=== PATIENT | male | born 1995 | race Caucasian/White ===

== ENCOUNTER 2018-06-30 03:54 | Emergency (ER) | payer OTHER ==
[~2018-06-30] VITALS: Ht 185.4 cm; Wt 139.0 kg
--- NOTE | 2018-06-30 03:59 | ED.ADGEN ---
Past History Smoking: Cigarettes Alcohol Use: Occasionally Drug Use: Cocaine (VALENTINO DOSS MD) Adult General Chief Complaint Chief Complaint ".. I woke up with this chest pain... 12/27... it s been going on about hour...here on the Lt. ..." (VALENTINO DOSS MD) HPI HPI Patient is a 23 year old male who presents with Lt. sided chest pain. Has has low level pain since yesterday. Tonight pain is more severe and it woke him up. He is somewhat pleuritic increased with deep breaths and cough. Pain is localized on left side and radiates to back Pt. denies prior cardiac history. Patient does smoke. Patient does occasionally use cocaine. Patient denies any recent drug use. 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 Patient denies any previous history of DVTs, PEs or prior episodes of chest pain. Patient's cough has been nonproductive. No history of trauma. (VALENTINO DOSS MD) Review of Systems Review of Systems Constitutional: Denies fever or chills [] Eyes: Denies change in visual acuity, redness, or eye pain [] HENT: Denies nasal congestion or sore throat [] Respiratory: History of a nonproductive cough . Subjective shortness of breath [ ] Cardiovascular: No additional information not addressed in HPI [] GI: Denies abdominal pain, nausea, vomiting, bloody stools or diarrhea [] : Denies dysuria or hematuria [] Musculoskeletal: Denies back pain or joint pain [] Integument: Denies rash or skin lesions [] Neurologic: Denies headache, focal weakness or sensory changes [] Endocrine: Denies polyuria or polydipsia [] All other systems were reviewed and found to be within normal limits, except as documented in this note. (VALENTINO DOSS MD) Family History Family History Father started having clotting problems stage XL DVTs stroke pulmonary embolisms (VALENTINO DOSS MD) Current Medications Current Medications Current Medications Medications (Trade) Dose Ordered Sig/Grisel Start Time Stop Time Status Last Admin Dose Admin Aspirin (Children'S Aspirin) 324 mg 1X ONCE 06/30/18 04:15 06/30/18 04:16 DC 06/30/18 04:22 324 MG Famotidine (Pepcid Vial) 20 mg 1X ONCE 06/30/18 04:15 06/30/18 04:16 DC 06/30/18 04:23 20 MG Ketorolac Tromethamine (Toradol 30mg Vial) 30 mg 1X ONCE 06/30/18 04:15 06/30/18 04:16 DC 06/30/18 04:23 30 MG Lactated Ringer's 1,000 ml @ 1,000 mls/hr Q1H 06/30/18 04:15 06/30/18 05:14 DC 06/30/18 04:23 1,000 MLS/HR Ondansetron HCl (Zofran) 8 mg 1X ONCE 06/30/18 05:15 06/30/18 05:19 DC 06/30/18 05:15 8 MG (GINGER ROBERTSON DO) Current Medications See nursing for home meds (VALENTINO DOSS MD) Allergies Allergies Allergies Coded Allergies Type Severity Reaction Last Updated Verified No Known Drug Allergies 06/30/18 No (GINGER ROBERTSON DO) Physical Exam Physical Exam Constitutional: Moderate distress, non-toxic appearance. [] HENT: Normocephalic, atraumatic, bilateral external ears normal, oropharynx moist, no oral exudates, nose normal. [] Eyes: PERRLA, EOMI, conjunctiva normal, no discharge. [] Neck: Normal range of motion, no tenderness, supple, no stridor. [] Cardiovascular: Regular Heart rate regular rhythm, no murmur [] Lungs & Thorax: Bilateral breath sounds equal at apex on auscultation [A few scattered wheezes.) Abdomen: Bowel sounds normal, soft, no tenderness, no masses, no pulsatile masses. [] Skin: Warm, dry, no erythema, no rash. [Tattoos Back: No tenderness, no CVA tenderness. [] Extremities: No tenderness, no cyanosis, no clubbing, ROM intact, no edema. [] No cording appreciated Neurologic: Alert and oriented X 3, normal motor function, normal sensory function, no focal deficits noted. [] Psychologic: Affect very anxious, judgement normal, mood normal. [] (VALENTINO DOSS MD) Current Patient Data Vital Signs Vital Signs Date Time Temp Pulse Resp B/P (MAP) Pulse Ox O2 Delivery O2 Flow Rate FiO2 06/30/18 06:45 81 18 97/41 (59) 95 Room Air 06/30/18 03:54 98.1 (GINGER ROBERTSON DO) Lab Results Laboratory Tests Test 06/30/18 04:05 06/30/18 04:12 06/30/18 05:03 06/30/18 05:35 Urine Collection Type Unknown Urine Color Yellow Urine Clarity Clear Urine pH 5.5 Urine Specific [place] 1.025 Urine Protein Neg (NEG-TRACE) Urine Glucose (UA) Neg mg/dL (NEG) Urine Ketones (Stick) Neg mg/dL (NEG) Urine Blood Neg (NEG) Urine Nitrite Neg (NEG) Urine Bilirubin Neg (NEG) Urine Urobilinogen Dipstick 0.2 mg/dL (0.2 mg/dL) Urine Leukocyte Esterase Neg (NEG) Urine RBC 0 /HPF (0-2) Urine WBC Occ /HPF (0-4) Urine Squamous Epithelial Cells Few /LPF Urine Bacteria 0 /HPF (0-FEW) Urine Opiates Screen Neg (NEG) Urine Methadone Screen Neg (NEG) Urine Barbiturates Neg (NEG) Urine Phencyclidine Screen Neg (NEG) Urine Amphetamine/Methamphetamine Neg (NEG) Urine Benzodiazepines Screen Neg (NEG) Urine Cocaine Screen Neg (NEG) Urine Cannabinoids Screen Neg (NEG) Urine Ethyl Alcohol Neg (NEG) White Blood Count 8.8 x10^3/uL (4.0-11.0) Red Blood Count 5.68 x10^6/uL (4.30-5.70) Hemoglobin 16.8 g/dL (13.0-17.5) Hematocrit 50.1 % (39.0-53.0) Mean Corpuscular Volume 88 fL (79-100) Mean Corpuscular Hemoglobin 30 pg (25-35) Mean Corpuscular Hemoglobin Concent 34 g/dL (31-37) Red Cell Distribution Width 13.1 % (11.5-14.5) Platelet Count 189 x10^3/uL (140-400) Neutrophils (%) (Auto) 65 % (31-73) Lymphocytes (%) (Auto) 26 % (24-48) Monocytes (%) (Auto) 8 % (0-9) Eosinophils (%) (Auto) 1 % (0-3) Basophils (%) (Auto) 1 % (0-3) Neutrophils # (Auto) 5.7 x10^3uL (1.8-7.7) Lymphocytes # (Auto) 2.2 x10^3/uL (1.0-4.8) Monocytes # (Auto) 0.7 x10^3/uL (0.0-1.1) Eosinophils # (Auto) 0.1 x10^3/uL (0.0-0.7) Basophils # (Auto) 0.1 x10^3/uL (0.0-0.2) Prothrombin Time 9.9 SEC (9.4-11.4) Prothrombin Time INR 1.0 (0.9-1.1) PTT 23 SEC (23-33) D-Dimer ([place]) 0.49 mg/L (0.00-0.50) Sodium Level 142 mmol/L (136-145) Potassium Level 3.9 mmol/L (3.5-5.1) Chloride Level 104 mmol/L (98-107) Carbon Dioxide Level 30 mmol/L (21-32) Anion Gap 8 (6-14) Blood Urea Nitrogen 15 mg/dL (8-26) Creatinine 1.2 mg/dL (0.7-1.3) Estimated GFR (Cockcroft-Gault) 75.7 Glucose Level 105 mg/dL (70-99) H Calcium Level 9.1 mg/dL (8.5-10.1) Magnesium Level 2.1 mg/dL (1.8-2.4) Total Bilirubin 0.7 mg/dL (0.2-1.0) Direct Bilirubin 0.2 mg/dL (0.0-0.2) Aspartate Amino Transferase (AST) 37 U/L (15-37) Alanine Aminotransferase (ALT) 95 U/L (16-63) H Alkaline Phosphatase 66 U/L (46-116) Creatine Kinase 197 U/L (39-308) Troponin I Quantitative < 0.017 ng/mL (0-0.055) < 0.017 ng/mL (0-0.055) YI-Tqb-R-Type Natriuretic Peptide 5 pg/mL (0-124) Total Protein 8.0 g/dL (6.4-8.2) Albumin 4.1 g/dL (3.4-5.0) Amylase Level 61 U/L (25-115) Lipase 138 U/L (73-393) Influenza Type A (Rapid) Negative (NEGATIVE) Influenza Type B (Rapid) Negative (NEGATIVE) (GINGER ROBERTSON DO) Lab Results Laboratory Tests Test 06/30/18 04:05 06/30/18 04:12 06/30/18 05:03 06/30/18 05:35 Urine Collection Type Unknown Urine Color Yellow Urine Clarity Clear Urine pH 5.5 Urine Specific [place] 1.025 Urine Protein Neg (NEG-TRACE) Urine Glucose (UA) Neg mg/dL (NEG) Urine Ketones (Stick) Neg mg/dL (NEG) Urine Blood Neg (NEG) Urine Nitrite Neg (NEG) Urine Bilirubin Neg (NEG) Urine Urobilinogen Dipstick 0.2 mg/dL (0.2 mg/dL) Urine Leukocyte Esterase Neg (NEG) Urine RBC 0 /HPF (0-2) Urine WBC Occ /HPF (0-4) Urine Squamous Epithelial Cells Few /LPF Urine Bacteria 0 /HPF (0-FEW) Urine Opiates Screen Neg (NEG) Urine Methadone Screen Neg (NEG) Urine Barbiturates Neg (NEG) Urine Phencyclidine Screen Neg (NEG) Urine Amphetamine/Methamphetamine Neg (NEG) Urine Benzodiazepines Screen Neg (NEG) Urine Cocaine Screen Neg (NEG) Urine Cannabinoids Screen Neg (NEG) Urine Ethyl Alcohol Neg (NEG) White Blood Count 8.8 x10^3/uL (4.0-11.0) Red Blood Count 5.68 x10^6/uL (4.30-5.70) Hemoglobin 16.8 g/dL (13.0-17.5) Hematocrit 50.1 % (39.0-53.0) Mean Corpuscular Volume 88 fL (79-100) Mean Corpuscular Hemoglobin 30 pg (25-35) Mean Corpuscular Hemoglobin Concent 34 g/dL (31-37) Red Cell Distribution Width 13.1 % (11.5-14.5) Platelet Count 189 x10^3/uL (140-400) Neutrophils (%) (Auto) 65 % (31-73) Lymphocytes (%) (Auto) 26 % (24-48) Monocytes (%) (Auto) 8 % (0-9) Eosinophils (%) (Auto) 1 % (0-3) Basophils (%) (Auto) 1 % (0-3) Neutrophils # (Auto) 5.7 x10^3uL (1.8-7.7) Lymphocytes # (Auto) 2.2 x10^3/uL (1.0-4.8) Monocytes # (Auto) 0.7 x10^3/uL (0.0-1.1) Eosinophils # (Auto) 0.1 x10^3/uL (0.0-0.7) Basophils # (Auto) 0.1 x10^3/uL (0.0-0.2) Prothrombin Time 9.9 SEC (9.4-11.4) Prothrombin Time INR 1.0 (0.9-1.1) PTT 23 SEC (23-33) D-Dimer ([place]) 0.49 mg/L (0.00-0.50) Sodium Level 142 mmol/L (136-145) Potassium Level 3.9 mmol/L (3.5-5.1) Chloride Level 104 mmol/L (98-107) Carbon Dioxide Level 30 mmol/L (21-32) Anion Gap 8 (6-14) Blood Urea Nitrogen 15 mg/dL (8-26) Creatinine 1.2 mg/dL (0.7-1.3) Estimated GFR (Cockcroft-Gault) 75.7 Glucose Level 105 mg/dL (70-99) H Calcium Level 9.1 mg/dL (8.5-10.1) Magnesium Level 2.1 mg/dL (1.8-2.4) Total Bilirubin 0.7 mg/dL (0.2-1.0) Direct Bilirubin 0.2 mg/dL (0.0-0.2) Aspartate Amino Transferase (AST) 37 U/L (15-37) Alanine Aminotransferase (ALT) 95 U/L (16-63) H Alkaline Phosphatase 66 U/L (46-116) Creatine Kinase 197 U/L (39-308) Troponin I Quantitative < 0.017 ng/mL (0-0.055) < 0.017 ng/mL (0-0.055) XV-Lhm-A-Type Natriuretic Peptide 5 pg/mL (0-124) Total Protein 8.0 g/dL (6.4-8.2) Albumin 4.1 g/dL (3.4-5.0) Triglycerides Level 136 mg/dL (0-150) Cholesterol Level 214 mg/dL (0-200) H LDL Cholesterol, Calculated 146 mg/dL (0-100) H VLDL Cholesterol, Calculated 27 mg/dL (0-40) Non-HDL Cholesterol Calculated 173 mg/dL (0-129) H HDL Cholesterol 41 mg/dL (40-60) Cholesterol/HDL Ratio 5.0 Amylase Level 61 U/L (25-115) Lipase 138 U/L (73-393) Thyroid Stimulating Hormone (TSH) 2.634 uIU/mL (0.358-3.740) Influenza Type A (Rapid) Negative (NEGATIVE) Influenza Type B (Rapid) Negative (NEGATIVE) (VALENTINO DOSS MD) EKG EKG I interpretation of EKG shows a sinus rhythm at 78 bpm. There are no findings acute STEMI with contralateral changes.[] Repeat EKG at 543 shows a sinus rhythm at 73. No acute changes. No acute morphology. (VALENTINO DOSS MD) Radiology/Procedures Radiology/Procedures I interpretation of chest x-ray shows no acute cardiopulmonary findings. Some basilar atelectasis. Free air under the diaphragm.[] (VALENTINO DOSS MD) Course & Med Decision Making Course & Med Decision Making Pertinent Labs and Imaging studies reviewed. (See chart for details) Pt. take daily ASA. Take Ibuprofen 600mg up4 x day for pain with food. Follow up with primary and get out pt. cardiology consult. Avoid any tobacco or illicit drugs. Return if any concerns. Heart Score-1 to2 [] (VALENTINO DOSS MD) Course & Med Decision Making The radiologist called emergency room about this patient and I took the call. They did identify a very small possible pneumothorax in the apex of the right lung. I reviewed this x-ray myself and agree that it is very small if in fact his pneumothorax. An pneumothorax of this size should resorb without intervention. I will not ask the patient to return for a chest tube. We will call and inform him of this finding. (GINGER ROBERTSON DO) Final Impression Final Impression 1. Chest Pain[]-Pleuritic (VALENTINO DOSS MD) Dragon Disclaimer Dragon Disclaimer This electronic medical record was generated, in whole or in part, using a voice recognition dictation system. (VALENTINO DOSS MD) Discharge Summary Visit Information Final Diagnosis Problems Medical Problems: (1) Chest pain Status: Acute (GINGER ROBERTSON DO) Brief Hospital Course Allergies Allergies Coded Allergies Type Severity Reaction Last Updated Verified No Known Drug Allergies 06/30/18 No (GINGER ROBERTSON DO) Vital Signs Vital Signs Date Time Temp Pulse Resp B/P (MAP) Pulse Ox O2 Delivery O2 Flow Rate FiO2 06/30/18 06:45 81 18 97/41 (59) 95 Room Air 06/30/18 03:54 98.1 (GINGER ROBERTSON DO) Lab Results Laboratory Tests Test 06/30/18 04:05 06/30/18 04:12 06/30/18 05:03 06/30/18 05:35 Urine Collection Type Unknown Urine Color Yellow Urine Clarity Clear Urine pH 5.5 Urine Specific [place] 1.025 Urine Protein Neg (NEG-TRACE) Urine Glucose (UA) Neg mg/dL (NEG) Urine Ketones (Stick) Neg mg/dL (NEG) Urine Blood Neg (NEG) Urine Nitrite Neg (NEG) Urine Bilirubin Neg (NEG) Urine Urobilinogen Dipstick 0.2 mg/dL (0.2 mg/dL) Urine Leukocyte Esterase Neg (NEG) Urine RBC 0 /HPF (0-2) Urine WBC Occ /HPF (0-4) Urine Squamous Epithelial Cells Few /LPF Urine Bacteria 0 /HPF (0-FEW) Urine Opiates Screen Neg (NEG) Urine Methadone Screen Neg (NEG) Urine Barbiturates Neg (NEG) Urine Phencyclidine Screen Neg (NEG) Urine Amphetamine/Methamphetamine Neg (NEG) Urine Benzodiazepines Screen Neg (NEG) Urine Cocaine Screen Neg (NEG) Urine Cannabinoids Screen Neg (NEG) Urine Ethyl Alcohol Neg (NEG) White Blood Count 8.8 x10^3/uL (4.0-11.0) Red Blood Count 5.68 x10^6/uL (4.30-5.70) Hemoglobin 16.8 g/dL (13.0-17.5) Hematocrit 50.1 % (39.0-53.0) Mean Corpuscular Volume 88 fL (79-100) Mean Corpuscular Hemoglobin 30 pg (25-35) Mean Corpuscular Hemoglobin Concent 34 g/dL (31-37) Red Cell Distribution Width 13.1 % (11.5-14.5) Platelet Count 189 x10^3/uL (140-400) Neutrophils (%) (Auto) 65 % (31-73) Lymphocytes (%) (Auto) 26 % (24-48) Monocytes (%) (Auto) 8 % (0-9) Eosinophils (%) (Auto) 1 % (0-3) Basophils (%) (Auto) 1 % (0-3) Neutrophils # (Auto) 5.7 x10^3uL (1.8-7.7) Lymphocytes # (Auto) 2.2 x10^3/uL (1.0-4.8) Monocytes # (Auto) 0.7 x10^3/uL (0.0-1.1) Eosinophils # (Auto) 0.1 x10^3/uL (0.0-0.7) Basophils # (Auto) 0.1 x10^3/uL (0.0-0.2) Prothrombin Time 9.9 SEC (9.4-11.4) Prothromb Time International Ratio 1.0 (0.9-1.1) Activated Partial Thromboplast Time 23 SEC (23-33) D-Dimer ([place]) 0.49 mg/L (0.00-0.50) Sodium Level 142 mmol/L (136-145) Potassium Level 3.9 mmol/L (3.5-5.1) Chloride Level 104 mmol/L (98-107) Carbon Dioxide Level 30 mmol/L (21-32) Anion Gap 8 (6-14) Blood Urea Nitrogen 15 mg/dL (8-26) Creatinine 1.2 mg/dL (0.7-1.3) Estimated GFR (Cockcroft-Gault) 75.7 Glucose Level 105 mg/dL (70-99) Calcium Level 9.1 mg/dL (8.5-10.1) Magnesium Level 2.1 mg/dL (1.8-2.4) Total Bilirubin 0.7 mg/dL (0.2-1.0) Direct Bilirubin 0.2 mg/dL (0.0-0.2) Aspartate Amino Transf (AST/SGOT) 37 U/L (15-37) Alanine Aminotransferase (ALT/SGPT) 95 U/L (16-63) Alkaline Phosphatase 66 U/L (46-116) Creatine Kinase 197 U/L (39-308) Troponin I Quantitative < 0.017 ng/mL (0-0.055) < 0.017 ng/mL (0-0.055) ZZ-Yoc-K-Type Natriuretic Peptide 5 pg/mL (0-124) Total Protein 8.0 g/dL (6.4-8.2) Albumin 4.1 g/dL (3.4-5.0) Amylase Level 61 U/L (25-115) Lipase 138 U/L (73-393) Influenza Type A (Rapid) Negative (NEGATIVE) Influenza Type B (Rapid) Negative (NEGATIVE) (GINGER ROBERTSON DO) Brief Hospital Course Mr. Ly is a 23 old male who presented with history of pleuritic chest pain. Patient take a daily aspirin. Patient take ibuprofen up 4 times a day for chest wall pain. Patient follow-up primary care. Patient obtain outpatient cardiac follow-up. Patient avoid illicit drugs and tobacco. (VALENTINO DOSS MD) Discharge Information Condition at Discharge: Improved, Stable Disposition/Orders: D/C to Home (VALENTINO DOSS MD) Dischare Medications Current Medications Aspirin (Children'S Aspirin) 324 mg 1X ONCE PO Last administered on 06/30/18at 04:22; Admin Dose 324 MG; Start 06/30/18 at 04:15; Stop 06/30/18 at 04:16; Status DC Lactated Ringer's 1,000 ml @ 1,000 mls/hr Q1H IV Last administered on at 04:23; Admin Dose 1,000 MLS/HR; Start 06/30/18 at 04:15; Stop 06/30/18 at 05:14; Status DC Famotidine (Pepcid Vial) 20 mg 1X ONCE IVP Last administered on 06/30/18at 04: 23; Admin Dose 20 MG; Start 06/30/18 at 04:15; Stop 06/30/18 at 04:16; Status DC Ketorolac Tromethamine (Toradol 30mg Vial) 30 mg 1X ONCE IV Last administered on 06/30/18at 04:23; Admin Dose 30 MG; Start 06/30/18 at 04:15; Stop 06/30/18 at 04:16; Status DC Ondansetron HCl (Zofran) 8 mg 1X ONCE IV Last administered on 06/30/18at 05:15 ; Admin Dose 8 MG; Start 06/30/18 at 05:15; Stop 06/30/18 at 05:19; Status DC (GINGER ROBERTSON DO) Discharge Summary Visit Information Final Diagnosis Problems Medical Problems: (1) Chest pain Status: Acute (GINGER ROBERTSON DO) Brief Hospital Course Allergies Allergies Coded Allergies Type Severity Reaction Last Updated Verified No Known Drug Allergies 06/30/18 No (GINGER ROBERTSON DO) Vital Signs Vital Signs Date Time Temp Pulse Resp B/P (MAP) Pulse Ox O2 Delivery O2 Flow Rate FiO2 06/30/18 06:45 81 18 97/41 (59) 95 Room Air 06/30/18 03:54 98.1 (GINGER ROBERTSON DO) Lab Results Laboratory Tests Test 06/30/18 04:05 06/30/18 04:12 06/30/18 05:03 06/30/18 05:35 Urine Collection Type Unknown Urine Color Yellow Urine Clarity Clear Urine pH 5.5 Urine Specific [place] 1.025 Urine Protein Neg (NEG-TRACE) Urine Glucose (UA) Neg mg/dL (NEG) Urine Ketones (Stick) Neg mg/dL (NEG) Urine Blood Neg (NEG) Urine Nitrite Neg (NEG) Urine Bilirubin Neg (NEG) Urine Urobilinogen Dipstick 0.2 mg/dL (0.2 mg/dL) Urine Leukocyte Esterase Neg (NEG) Urine RBC 0 /HPF (0-2) Urine WBC Occ /HPF (0-4) Urine Squamous Epithelial Cells Few /LPF Urine Bacteria 0 /HPF (0-FEW) Urine Opiates Screen Neg (NEG) Urine Methadone Screen Neg (NEG) Urine Barbiturates Neg (NEG) Urine Phencyclidine Screen Neg (NEG) Urine Amphetamine/Methamphetamine Neg (NEG) Urine Benzodiazepines Screen Neg (NEG) Urine Cocaine Screen Neg (NEG) Urine Cannabinoids Screen Neg (NEG) Urine Ethyl Alcohol Neg (NEG) White Blood Count 8.8 x10^3/uL (4.0-11.0) Red Blood Count 5.68 x10^6/uL (4.30-5.70) Hemoglobin 16.8 g/dL (13.0-17.5) Hematocrit 50.1 % (39.0-53.0) Mean Corpuscular Volume 88 fL (79-100) Mean Corpuscular Hemoglobin 30 pg (25-35) Mean Corpuscular Hemoglobin Concent 34 g/dL (31-37) Red Cell Distribution Width 13.1 % (11.5-14.5) Platelet Count 189 x10^3/uL (140-400) Neutrophils (%) (Auto) 65 % (31-73) Lymphocytes (%) (Auto) 26 % (24-48) Monocytes (%) (Auto) 8 % (0-9) Eosinophils (%) (Auto) 1 % (0-3) Basophils (%) (Auto) 1 % (0-3) Neutrophils # (Auto) 5.7 x10^3uL (1.8-7.7) Lymphocytes # (Auto) 2.2 x10^3/uL (1.0-4.8) Monocytes # (Auto) 0.7 x10^3/uL (0.0-1.1) Eosinophils # (Auto) 0.1 x10^3/uL (0.0-0.7) Basophils # (Auto) 0.1 x10^3/uL (0.0-0.2) Prothrombin Time 9.9 SEC (9.4-11.4) Prothromb Time International Ratio 1.0 (0.9-1.1) Activated Partial Thromboplast Time 23 SEC (23-33) D-Dimer ([place]) 0.49 mg/L (0.00-0.50) Sodium Level 142 mmol/L (136-145) Potassium Level 3.9 mmol/L (3.5-5.1) Chloride Level 104 mmol/L (98-107) Carbon Dioxide Level 30 mmol/L (21-32) Anion Gap 8 (6-14) Blood Urea Nitrogen 15 mg/dL (8-26) Creatinine 1.2 mg/dL (0.7-1.3) Estimated GFR (Cockcroft-Gault) 75.7 Glucose Level 105 mg/dL (70-99) Calcium Level 9.1 mg/dL (8.5-10.1) Magnesium Level 2.1 mg/dL (1.8-2.4) Total Bilirubin 0.7 mg/dL (0.2-1.0) Direct Bilirubin 0.2 mg/dL (0.0-0.2) Aspartate Amino Transf (AST/SGOT) 37 U/L (15-37) Alanine Aminotransferase (ALT/SGPT) 95 U/L (16-63) Alkaline Phosphatase 66 U/L (46-116) Creatine Kinase 197 U/L (39-308) Troponin I Quantitative < 0.017 ng/mL (0-0.055) < 0.017 ng/mL (0-0.055) GS-Vns-Y-Type Natriuretic Peptide 5 pg/mL (0-124) Total Protein 8.0 g/dL (6.4-8.2) Albumin 4.1 g/dL (3.4-5.0) Amylase Level 61 U/L (25-115) Lipase 138 U/L (73-393) Influenza Type A (Rapid) Negative (NEGATIVE) Influenza Type B (Rapid) Negative (NEGATIVE) (GINGER ROBERTSON DO) Brief Hospital Course Mr. Ly is a 23 old male who presented with pleurisy. Must follow-up with primary. Consider outpatient stress testing if cardiac continue to be a concern.. (VALENTINO DOSS MD) Discharge Information Condition at Discharge: Improved, Stable Disposition/Orders: D/C to Home (VALENTINO DOSS MD) Dischare Medications Current Medications Aspirin (Children'S Aspirin) 324 mg 1X ONCE PO Last administered on 06/30/18at 04:22; Admin Dose 324 MG; Start 06/30/18 at 04:15; Stop 06/30/18 at 04:16; Status DC Lactated Ringer's 1,000 ml @ 1,000 mls/hr Q1H IV Last administered on at 04:23; Admin Dose 1,000 MLS/HR; Start 06/30/18 at 04:15; Stop 06/30/18 at 05:14; Status DC Famotidine (Pepcid Vial) 20 mg 1X ONCE IVP Last administered on 06/30/18at 04: 23; Admin Dose 20 MG; Start 06/30/18 at 04:15; Stop 06/30/18 at 04:16; Status DC Ketorolac Tromethamine (Toradol 30mg Vial) 30 mg 1X ONCE IV Last administered on 06/30/18at 04:23; Admin Dose 30 MG; Start 06/30/18 at 04:15; Stop 06/30/18 at 04:16; Status DC Ondansetron HCl (Zofran) 8 mg 1X ONCE IV Last administered on 06/30/18at 05:15 ; Admin Dose 8 MG; Start 06/30/18 at 05:15; Stop 06/30/18 at 05:19; Status DC (GINGER ROBERTSON DO) Dragon Disclaimer This chart was dictated in whole or in part using Voice Recognition software in a busy, high-work load, and often noisy Emergency Department environment. It may contain unintended and wholly unrecognized errors or omissions. (VALENTINO DOSS MD) Dragon Disclaimer This chart was dictated in whole or in part using Voice Recognition software in a busy, high-work load, and often noisy Emergency Department environment. It may contain unintended and wholly unrecognized errors or omissions. (VALENTINO DOSS MD) VALENTINO DOSS MD Jun 30, 2018 03:59 GINGER ROBERTSON DO Jun 30, 2018 10:12
[2018-06-30] MEDS ORDERED: IV RINGERS SOLUTION,LACTATED 1,000 ML IV SCH (04:15)
[2018-06-30] MEDS ORDERED: FAMOTIDINE 20 MG/2 ML VIAL IVP ONE (04:15)
[2018-06-30] MEDS ORDERED: ASPIRIN 81 MG TAB.CHEW PO ONE (04:15)
[2018-06-30] MEDS ORDERED: KETOROLAC 30 MG/ML VIAL. IV ONE (04:15)
[2018-06-30 04:29] LABS: BASO # 0.1 x10^3/uL (0.0-0.2); BASO % 1 % (0-3); EOS # 0.1 x10^3/uL (0.0-0.7); EOS % 1 % (0-3); HEMATOCRIT 50.1 % (39.0-53.0); HEMOGLOBIN 16.8 g/dL (13.0-17.5); LYMPH # 2.2 x10^3/uL (1.0-4.8); LYMPH % 26 % (24-48); MEAN CORPUSCULAR HEMOGLOBIN 30 pg (25-35); MEAN CORPUSCULAR HGB CONC 34 g/dL (31-37); MEAN CORPUSCULAR VOLUME 88 fL (79-100); MONO # 0.7 x10^3/uL (0.0-1.1); MONO % 8 % (0-9); NEUT # 5.7 x10^3uL (1.8-7.7); NEUT % 65 % (31-73); PLATELET COUNT 189 x10^3/uL (140-400); RED BLOOD COUNT 5.68 x10^6/uL (4.30-5.70); RED CELL DISTRIBUTION WIDTH 13.1 % (11.5-14.5); WHITE BLOOD COUNT 8.8 x10^3/uL (4.0-11.0)
[2018-06-30 04:36] LABS: BACTERIA,URINE 0 /HPF (0-FEW); BILIRUBIN,URINE NEG (NEG); CLARITY,URINE CLEAR; COLOR,URINE YELLOW; GLUCOSE,URINE NEG (NEG); NITRITE,URINE NEG (NEG); RBC,URINE 0 /HPF (0-2); SQUAMOUS EPITHELIAL CELL,UR FEW /LPF; UROBILINOGEN,URINE 0.2 mg/dL (0.2 mg/dL); WBC,URINE OCC /HPF (0-4)
[2018-06-30 04:44] LABS: BARBITURATES NEG (NEG); BENZODIAZEPINES NEG (NEG); CANNABINOIDS NEG (NEG); COCAINE NEG (NEG); METHADONE NEG (NEG); OPIATES NEG (NEG); PHENCYCLIDINE NEG (NEG)
[2018-06-30 04:45] LABS: AMPHETAMINE/METHAMPHETAMINE NEG (NEG)
[2018-06-30 04:50] LABS: ALBUMIN 4.1 g/dL (3.4-5.0); CALCIUM 9.1 mg/dL (8.5-10.1); CREATININE 1.2 mg/dL (0.7-1.3); DIRECT BILIRUBIN 0.2 mg/dL (0.0-0.2); GFR 75.7; MAGNESIUM 2.1 mg/dL (1.8-2.4); POTASSIUM 3.9 mmol/L (3.5-5.1); TOTAL BILIRUBIN 0.7 mg/dL (0.2-1.0)
[2018-06-30] MEDS ORDERED: ONDANSETRON PF 4 MG/2 ML VIAL. ONE (05:12)
[2018-06-30] MEDS ORDERED: ONDANSETRON PF 4 MG/2 ML VIAL. IV ONE (05:15)
[2018-06-30 05:36] LABS: INFLUENZA A PATIENT NEGATIVE (NEGATIVE); INFLUENZA B PATIENT NEGATIVE (NEGATIVE)
[2018-06-30 06:45] VITALS: BP 97/41
--- NOTE | 2018-06-30 09:15 | RAD ---
Examination: CHEST PA LATERAL History: Chest pain Comparison/Correlation: None Findings: PA and lateral views of chest were obtained. Heart size and pulmonary vascular are normal. No infiltrate or pleural effusion. There is a small right apical lucency of indeterminate significance. Right lung apex appears to be between the right second and third rib medially. Bony structures are unremarkable. Impression: Small right apical lucency. Pneumothorax is not excluded. On 06/30/2018 at 9:10 AM, results reported to Dr. Skaggs. Electronically signed by: Daron Morrissey MD (06/30/2018 9:10 AM) [id number]
--- NOTE | 2018-06-30 11:46 | EKG ---
[address] [address] Test Date: 2018-06-30 Test Time: 04:02:54 Pat Name: RIP MERRITT Department: Room: Gender: M Blank Driller: IAM : 1995 Requested By: VALENTINO DOSS Order Number: [id number] Reading MD: Driss Thompson MD Measurements Intervals [place] Rate: 78 P: 37 CT: 164 QRS: 30 QRSD: 100 T: 10 QT: 348 QTc: 400 Interpretive Statements SINUS RHYTHM Electronically Signed On 07-03-2018 10:30:10 MINING DETAIL DRAFTSPERSON by Driss Thompson MD
--- NOTE | 2018-06-30 11:46 | EKG ---
[address] [address] Test Date: 2018-06-30 Test Time: 05:43:18 Pat Name: RIP MERRITT Department: Room: Gender: M Scrap Drop Operator: IAM : 1995 Requested By: VALENTINO DOSS Order Number: [id number] Reading MD: Driss Thompson MD Measurements Intervals [place] Rate: 73 P: 28 [place]: 172 QRS: 17 QRSD: 94 T: -1 QT: 356 QTc: 396 Interpretive Statements SINUS RHYTHM Electronically Signed On 07-03-2018 10:30:36 INSPECTION MACHINE TENDER by Driss Thompson MD
[2018-06-30 13:17] LABS: THYROID STIM HORMONE (TSH) 2.634 uIU/mL (0.358-3.740)
== END 2018-06-30 06:45 | disposition home or self-care (01) ==
LOC: ER 03:54
DX: R07.81 Pleurodynia (principal); F17.210 Nicotine dependence, cigarettes, uncomplicated
CPT/HCPCS: 36415; 71046; 80048; 80061; 80076; 80307; 81001; 82150; 82550; 83690; 83735; 83880; 84443; 84484; 85025; 85379; 85610; 85730; 87804; 93005; 96374; 96375; 99284; J1885; J2405; J3490; J7120; 96361